=== PATIENT | female | born 1945 | race Caucasian/White ===

== ENCOUNTER → 2020-11-27 13:37 | Outpatient (CLI) | payer MEDICARE, SELFPAY ==
[2020-11-27 14:40] LABS: Partial Thromboplast Time 32.9 Seconds (24.1-36.2)
[2020-11-27 14:43] LABS: Erythrocyte Sedimentation Rate 35 mm/hr (0-30)
== END ==
PROVIDERS: Visit Provider Nurse Practitioner Family
DX: R23.3 Spontaneous ecchymoses (principal)
CPT/HCPCS: 85652; 85730; 86140

== ENCOUNTER → 2022-10-02 | Outpatient (CLI) | payer MEDICARE, SELFPAY ==
--- NOTE | 2022-10-02 06:37 | CT_ITS ---
CT RIGHT LOWER EXTREMITY WITH 3-D IMAGING CLINICAL INDICATION: KNEE PAIN COMPARISON: TECHNIQUE: Axial CT images of the RIGHT lower extremity were provided. RADIATION DOSAGE (If Supplied By Facility): CTDIvol = ( 26.98 ) mGy, DLP = ( 1533.33 ) mGycm FINDINGS: Standard protocol for the preoperative planning for the [employer] robotic knee surgery was performed. Mild 2 moderate arthrosis of the right hip, right knee and right ankle. CT/Extremity Lower without Contra IMPRESSION: Preoperative Mako[employer] Robotic knee surgical CT evaluation with findings as described above. Electronically Signed: Manas Orellana, at 9:23 EDT ,
== END | disposition home or self-care (01) ==
LOC: CT 06:33
PROVIDERS: PCP Registered Nurse; Referring Provider Orthopaedic Surgery; Visit Provider Orthopaedic Surgery
DX: M17.11 Unilateral primary osteoarthritis, right knee (principal)
CPT/HCPCS: 73700

== ENCOUNTER 2022-10-07 08:01 | Day surgery (SDC) | payer MEDICARE, SELFPAY ==
[2022-09-28 11:03] LABS: Magnesium 2.1 mg/dL (1.6-2.6)
[2022-10-07] VITALS (9 sets, daily range): BP systolic 106–143; BP diastolic 58–88; PULSE 50–70; RESP 13–18; TEMP 36.1–36.9; O2SAT 97–100; BMI 38.0
--- NOTE | 2022-10-07 | KNEE_PTH ---
PATIENT: MICHELLE NEAL LOC: [facility] [place] [facility] [place][id number] AGE/SX: 77/F ROOM: RE10/07/[address]: Dr. Surya Chowdhury DO : 1945 BED: DIS: 10/07/2022 SPEC #: [id number] RECD: 10/07/22 13:03 STATUS: SANDRA PRICILA #: [id number] PEGGY: 10/07/22 00:[address]: Surya Chowdhury DEPT: SURGICAL PATHOLOGY RECD BY: Abdirashid Izquierdo ENTERED: 10/07/22 13:04 SP TYPE: TOTAL KNEE OTHR DR: Yumiko Beckman, INSPECTOR ELEVATORS-C Tissues: Knee, NOS Procedures: Decalcification bone/plaque Surgery Specimen Level IV HEADER OPERATION: ERAS, total knee replacement robotic arm assist PRE-OP DIAGNOSIS: Primary osteoarthritis right knee TISSUE SUBMITTED: Bone and soft tissue right knee MICROSCOPIC DIAGNOSIS Bone and tissue of right knee, total knee resection: Severe degenerative joint disease. Polarizable crystals consistent with pseudogout. AM:ama 10/10/2022 MICROSCOPIC DESCRIPTION Slides are reviewed. GROSS DESCRIPTION Received is one container designated bone and soft tissue right knee. The specimen consists of multiple fragments of snider-yellow bone measuring in aggregate 10.0 x 9.0 x 3.0 cm. Also in the specimen container are multiple fragments of yellow-white soft tissue (cartilaginous tissue) measuring in aggregate 4.0 x 2.0 x 1.0 cm. A number of bony fragments contain articular surfaces consistent with tibial plateau and femoral condyle and displaying prominent osteophyte formation, eburnation and bone erosion. Discharge Planner sections are submitted in two cassettes as follows: 1 - soft tissue, 2 - bone after decalcification. / SJ:ama 10/07/2022 TC:5 CPT: 37108, 80642
[2022-10-07] MEDS: Magnesium 1 GM over 15 mins IV (09:00)
[2022-10-07] MEDS: Acetaminophen 500 MG Tablet 1000 MG PO (09:01)
[2022-10-07] MEDS: Gabapentin 600 MG Tablet PO (09:02)
[2022-10-07] MEDS: Insulin Lispro 100 UNIT/ML INSULN.PEN SC (09:07)
[2022-10-07 09:16] LABS: Bedside Glucose 212 mg/dL (74-106)
[2022-10-07] MEDS: Clindamycin 900 MG/50 ML BAG 75 MG IV ×2 (10:13→14:58)
[2022-10-07] MEDS: TXA 1000mg in NS100 100ml (IVPB at Incision) 660 MG IV (10:39)
[2022-10-07] MEDS: JPS (Morphine 10mg/ml) OPERA.SITE (11:20)
[2022-10-07] MEDS: TXA 1000mg in NS100 100ml (IVPB at Closure) 660 MG IV (11:43)
--- NOTE | 2022-10-07 12:03 | OP.PCM_ITS ---
Report of Operation Date of Procedure: 10/07/22 Pre-Operative Diagnosis: OA right knee Post-Operative Diagnosis: same Surgery/Procedure Performed:: Right TKR Description of Surgical Findings:: Report of Operation Date of Procedure: 10/07/22 Preoperative Diagnosis: [ right ] knee primary osteoarthritis Postoperative Diagnosis: [right ] knee primary osteoarthritis Operation: Robotic Assisted Knee Total Arthroplasty, [right ] knee Surgeon: Dr Surya Chowdhury DO Load Dispatcher Local: CHARLIE Spangler Anesthesia: spinal Anesthesiologist: Jon Gleason M.D. Findings: Stable knee with good patella tracking Specimen(s): Bony cuts Complications: No intraoperative complications Estimated Blood Loss: 30 cc IV Fluids: 1000 cc crystalloid Implants Used: 1. [employer]ber[employer] Triathlon press-fit CR size 4 femur 2. [employer]rober[employer] Triathlon size 4 tibia 3. 32 mm patella 4. 10 mm CS polyethylene Brief History Operative Indications: [ (77 y/o female) ] with history of [ right ] knee osteoarthrosis with radiographic findings with loss of joint space, osteophyte formation and subchondral sclerosis. Failed conservative measures as mentioned in the H&P. Discussion of total knee arthroplasty as well as risk and benefits were discussed with the patient including but not limited to blood loss, DVTs, PEs, neurovascular damage, general risk of anesthesia including loss of life, and stiffness or instability were also discussed with the patient. Patient demonstrated understanding and was able to sign informed consent. Procedure: On the date of procedure, patient's [ right ] lower extremity was marked in the preoperative area. The patient was then taken back to the operating room where that patient was placed on the table in the supine position. All bony prom inences were identified and well-padded. Anesthesia assumed control of the C- spine and airway throughout the remainder of the procedure. A tourniquet was placed on the [right ] upper thigh and the leg was prepped in a sterile fashion. The surgeon then scrubbed at this time. Upon reentering the room, the [right ] lower extremity was draped in a standard orthopedic fashion. A timeout was then called and everyone agreed upon the side, the site, the procedure to be performed, patient's identity and antibiotics given. Esmarch bandage was used to exsanguinate the extremity and the tourniquet was placed up to 250 mmHg with the knee in flexion. A midline skin incision was made and a sharp dissection was taken down through skin, subcutaneous tissue and fat. The standard medial parapatellar incision was made and the patella was subluxed laterally. An appropriate deep MCL release was done and the fat pad was resected. Our attention was then directed to the patella. The patella was everted and a flat resection was made. The knee was then flexed up and 2 femoral pins were placed inside the incision and 2 tibial pins were placed outside the incision in the medial tibia bicortically. Once this was completed, the 2 checkpoints in the femur and tibia were placed. Knee was then flexed up and the bony landmarks were registered. Once the was completed, the knee taken through range of motion and manually stressed allowing us to plan for an appropriate tibial cut. The robotic arm was brought into the field sterilely and checkpoint and saw were registered. Based on the patient's deformity, the tibial cut was made in [1 degree varus ]. At this time, the tensioner was then placed in the joint and ligament tension was checked at 90 degrees and full extension. Based on the patient's ligamentous tension, appropriate adjustments were made to the operative plan and ligament releases were done. Once we were happy with our operative plan with balanced flexion and extension gaps, our attention was directed to the femur. The robot was brought into the field sterilely and registered. Posterior condylar cuts, anterior chamfer cuts and anterior cuts were appropriately made for a [size 4 ] femur. When these were completed, the saws were switched out in the distal femoral and posterior chamfer cuts were made. Protecting the soft tissue throughout this time. A [size 4 ] base plate was selected. The knee was flexed to 90 degrees and soft tissues and posterior osteophytes were removed from the joint. 40 cc of the periarticular injection was injected into the posterior medial corner of the joint. The appropriate trials were then placed on the femur and tibia. A trial polyethylene was trialed to ensure proper balancing and stability of the knee. The appropriate tibial internal rotation was then marked with a bovie. Our attention was then directed to the patella. The lug holes were drilled and the patella trial was placed. Patellar tracking was checked and deemed kimmy ropriate. Once we were happy, lug holes were drilled for the femur and trial components were removed. The tibia was subluxed and pinned into place and the keel was punched and drilled appropriately. Final components were verified and opened. The wound was copiously irrigated with normal saline. The components were impacted into place with the tibia, femur and finally the patella. The trial poly component was placed and the knee was placed in full extension. The tracking, alignment and balance were verified and a [10 mm CS ] polyethylene component was placed. Once the final components were placed an Irrisept lavage was performed and the wound was copiously irrigated with normal saline solution and the periarticular injection was given. the wound was closed in a layer-candelario fashion using #1 vicryl interrupted sutures for the arthrotomy, 2-0 interrupted vicryl suture for the subcuticular layer and parag for final skin closure. A sterile compressive dressing was then placed. The patient was then awakened from anesthesia, transferred to the [facility] and transferred to the PACU for recovery. My assistant county attorney was a vital part of this case. She was important in appropriate retraction during the case, and protection of soft tissues during bony cuts. Her intimate knowledge of the case and my steps aided in safe and expedient completion of the procedure as well as appropriate position of the leg during the case. She was also vital in assisting with closure under my direct supervision. Due to the complexity of this case, robotic arm was used to assist in the surgery to improve accuracy and clinical outcomes. Post-op Plan: DVT ppx; ASA 81 mg BID, thigh high compression stockings Follow up: in office in 2 weeks for wound check PT: to start POD #0 at hospital, outpatient PT should be arranged. Preoperative antibiotic: Clindamycin 900 mg IV Surya Chowdhury DO Surgeon: Surya Chowdhury tobacco warehouse manager: Mary Mariano Type of Anesthesia: Spinal Anesthesiologist: Jon Gleason Specimen's removed: bone Estimated Blood Loss (mL): 30 cc Fluids Replaced: 1000 cc crystalloid Admit VTE Documentation VTE Present on Admission: No VTE Mechan Device Prophylaxis: SCD's VTE Pharm Prophylaxis ordered?: Yes
[2022-10-07] MEDS: Lactated Ringers 1,000 ML 999 ML IV (12:58)
--- NOTE | 2022-10-07 13:05 | RAD_ITS ---
STUDY: X-RAY - RIGHT KNEE REASON FOR EXAM: Female, 77 years old. Post op -- in PACU TECHNIQUE: 2 view(s) of the knee. COMPARISON: None. FINDINGS: Normal visualized distal femur. Normal visualized proximal tibia and fibula. Normal proximal tibiofibular articulation. The patient is status post right total knee replacement. There is good alignment. Postoperative soft tissue changes. RAD/Knee 1 or 2 Views IMPRESSION: Status post right total knee replacement. There is good alignment. Postoperative soft tissue changes. Electronically Signed: Amish Zimmer MD at 13:46 EDT ,
[2022-10-07 13:21] LABS: Bedside Glucose 116 mg/dL (74-106)
[2022-10-07] MEDS: oxyCODONE 5 MG Tablet PO (15:03)
--- NOTE | 2022-10-07 15:53 | SUR.PHASEII ---
Assisted physical therapy with patient's first time walking. She walked well with her walker to the bathroom.
== END 2022-10-07 16:31 | disposition home or self-care (01) ==
LOC: SDC 08:07 → AC 08:08
PROVIDERS: Anesthesiology; PCP Registered Nurse; Referring Provider Orthopaedic Surgery; Visit Provider Orthopaedic Surgery
PROC: 0SRC0JZ Replacement of Right Knee Joint with Synthetic Substitute, Open Approach (ICD-10-PCS; CPT 27447; principal; 2022-10-07 10:05)
DX: M17.11 Unilateral primary osteoarthritis, right knee (principal); E11.9 Type 2 diabetes mellitus without complications; I10 Essential (primary) hypertension; E66.9 Obesity, unspecified; Z79.82 Long term (current) use of aspirin; Z79.84 Long term (current) use of oral hypoglycemic drugs; Z79.899 Other long term (current) drug therapy; Z86.16 Personal history of COVID-19; Z68.37 Body mass index [BMI] 37.0-37.9, adult
CPT/HCPCS: 27447; S2900; 64445; 01402; 36415; 73560; 82962; 83036; 83735; 87081; 88305; 88311; 97162; C1776; J7120; J2405; J3475